=== PATIENT | male | born 1950 | race Hispanic/Latino ===

== ENCOUNTER 2018-12-11 04:15 | Inpatient (IN) | payer OTHER ==
[2018-12-11] MEDS ORDERED: Morphine 4 MG/ML VIAL ONE (05:11)
[2018-12-11] MEDS ORDERED: Ondansetron PF 4 MG/2 ML Vial ONE (05:11)
--- NOTE | 2018-12-11 05:19 | PDOC.FPRHP ---
- History of Present Illness Chief Complaint: coffee ground emesis History of Present Illness: The patient is a 68YO gentleman with a PMH significant for DMII, HTN, HLD, and schizophrenia who was transferred from an outside facility after presenting there from shelter due to multiple episodes of coffee ground emesis that started around 11AM the day prior to presentation. The patient is aphasic and bedbound at baseline so the history was obtained via chart review and the ER physician. In addition, one beach lifeguard reported that this is not the first time the patient has had coffee ground emesis and stated that the last time it happened he aspirated and had to be hospitalized. The patients Hgb at the outside facility was 10.4 and he had a positive gastric occult blood test. An abd/pelvic CT did not show any free fluid or obstruction but was significant for a late acute vs. early subacute left femoral neck fracture. The patient was given 80mg of IV protonix before being transferred to [facility] for further evaluation. ED Course: 4mg zofran & 4mg morphine - History PMHx: HTN, HLD, schizophrenia, DMII, COPD PSHx: PEG tube and trach placement FHx: unable to obtain 2/2 aphasia Social: unable to obtain 2/2 aphasia - Review of Systems ROS unobtainable: other (limited 2/2 patient's aphasia) Eyes: denies: eye pain Respiratory: reports: shortness of breath Cardiovascular: denies: chest pain Gastrointestinal: reports: vomiting, GI bleeding. denies: abdominal pain Musculoskeletal: denies: pain - Vital signs BP: 135/81 HR: 92 RR: 27 Tmax: 98.7F Pox: 95% on RA - Physical Exam Constitutional: NAD, other (frail appearing & unable to assess orientation 2/2 aphasia) HEENT: normocephalic and atraumatic, grossly normal vision, grossly normal hearing, MMM, other (poor dentition) Neck: supple, FROM Heart: RRR, normal S1/S2, no murmurs/rubs/gallops, pulses present, no edema Lungs: CTAB, good air movement, no wheezing, no retractions Abdomen: soft, bowel sounds present, other (reported TTP in epigastrium; PEG tube in place) Musculoskeletal: normal structure, other Neurological: other (aphasic w/ inability to move LEs) Skin: no rash/lesions, good turgor, no jaundice Heme/Lymphatic: no purpura, no petechia, other (brown staining on collar of hospital gown with brown debris in trach tube) Psychiatric: other (unable to assess 2/2 aphasia) FMR H&P: Results - Labs Additional comment: Sodium - 137 Potassium 3.7 Cl: 101 CO2: 24 Glucose: 261 Ca: 8.3 BUN: 20 Alk phos: 152 ALT: 20 AST: 29 Lactic Acid 2.2 Gastric occult blood: positive H/H : 10.4/31.8 Plt: 242 PT: 14.1/INR: 1.3 Trop: < 0.01 CKMB: 1.41 FMR H&P: A/P - Problem List (1) Upper GI bleed Current Visit: Yes Status: Acute Code(s): K92.2 - GASTROINTESTINAL HEMORRHAGE, UNSPECIFIED (2) HTN (hypertension) Current Visit: Yes Status: Acute Code(s): I10 - ESSENTIAL (PRIMARY) HYPERTENSION (3) HLD (hyperlipidemia) Current Visit: Yes Status: Acute Code(s): E78.5 - HYPERLIPIDEMIA, UNSPECIFIED (4) Schizophrenia Current Visit: Yes Status: Acute Code(s): F20.9 - SCHIZOPHRENIA, UNSPECIFIED (5) DMII (diabetes mellitus, type 2) Current Visit: Yes Status: Acute (6) COPD (chronic obstructive pulmonary disease) Current Visit: Yes Status: Acute (7) Lactate blood increase Current Visit: Yes Status: Acute Code(s): R79.89 - OTHER SPECIFIED ABNORMAL FINDINGS OF BLOOD CHEMISTRY - Plan Upper GI bleed. - Gastric occult blood + at outside ED. Hgb 10.4. HD stable. - PT received protonix 80 mg IV prior to transfer. Will continue IV protonix 40mg BID. - GI consult in AM. Subacute femoral neck fracture - Patient denies any hip pain. - Will consider orthopedic consultation due to questionable acuity. Elevated lactate - Lactate mildly elevated at 2.2 at outside ED. Patient afebrile w/ a NL WBC count & HD stable so infection unlikely etiology. Could possibly be 2/2 thiamine deficiency or excessive muscle activity from tachypnea 2/2 chronic respiratory failure. - Will consider trending. Chronic hypoxic respiratory failure - Trach tube in place - Will continue routine trach care with humidified O2 & suctioning prn. Schizophrenia - continue home meds COPD - continue home meds Hypertension - resume home meds Hyperlipidemia - resume home meds DMII - Resume home meds. ACHS accuchecks & mild SSI. FMR H&P: Upper Level - Pertinent history Cesar Mack is a 68 year old male who was transferred from [facility] due to acute upper GI bleed Pt was initially to be admitted to GI at other hospital due to one day history of coffee ground emesis, but with new finding of subacute left femoral neck fx, [facility] recommended txfer to [facility]. Of note, he is reportedly bedbound and also has a chronic trach and peg for unclear reasons. - Pertinent findings Exam: General: pt alert and responsive; able to nod yes/no to questions; coffee ground material around gown collar. HEENT: trach in place; Heart: Regular rate and rhythm, no murmurs, rubs, gallops. Lungs: Clear to auscultation bilaterally, no wheezes, rhonchi, rales Abdomen: soft, non-tender. Sodium - 137 Potassium 3.7 Cl: 101 CO2: 24 Glucose: 261 Ca: 8.3 BUN: 20 Alk phos: 152 ALT: 20 AST: 29 Lactic Acid 2.2 Gastric occult blood: positive H/H : 10.4/31.8 Plt: 242 PT: 14.1/INR: 1.3 Trop: < 0.01 CKMB: 1.41 CT Abdomen pelvis: late acute or early subacute appearing fracture of the left femoral neck with varus angulation foreshortening, large left hipjoint effusion.Mildly obstructive left-sided renal calculi. - Plan Date/Time: 12/11/18 9553 ICalista, have evaluated this patient and agree with findings/plan as outlined by international first officer resident. Pertinent changes/additions are listed here. Upper GI bleed. - will admit to medical inpatient. - Nothing per PEG - GI consult in AM. - PT received protonix 80 mg IV prior to transfer. Subacute femoral neck fracture - may consider orthopedic consultation due to questionable acuity. Chronic hypoxic respiratory failure. - with trach; - trach care, with humidified O2; suctioning prn. Schizophrenia - continue home meds COPD - continue home meds Hypertension - resume home meds Hyperlipidemia - resume home meds Addendum - Attending - Attending Attestation Date/Time: 12/11/18 7722 I personally evaluated the patient and discussed the management with Dr. Elliott/ Casimiro. I agree with the History, Examination, Assessment and Plan documented above with any addition or exceptions noted below. Patient with history of mental disorders, incarcerated status, s/p trach/PEG, and bedbound status here with what appears to be coffee ground emesis. He was seen at [facility] and transferred here for higher care. Outside records show occult blood positive, and he has some bloody like emesis material on his gown. He is otherwise nonverbal and unable to answer questioning. He will be admitted for suspected upper GI bleed. NPO, IVF, Protonix BID, and consult GI. Trend H/H. He was also noted to have hip fracture at outside hospital, unknown etiology. Will consult Ortho, though since patient is bedbound do not know if they will actually plan to do anything other than bracing and pain control.
[2018-12-11] MEDS ORDERED: HumaLOG 300 UNITS/3 ML VIAL SC PRN ×2 (07:03)
[2018-12-11] MEDS ORDERED: Dextrose 5% in Water 1,000 ML IV PRN (07:03)
[2018-12-11] MEDS ORDERED: Dextrose 50% Abboject 50 ML SYRINGE SLOW IVP PRN (07:03)
[2018-12-11] MEDS ORDERED: Sodium Chloride 0.9% (PF) 10 ML VIAL FS PRN (07:25)
[2018-12-11 07:31] VITALS: BMI 21.2
[2018-12-11 07:53] LABS: Anion Gap 10 mmol/L (10-20); BUN (Urea Nitrogen) 23 mg/dL (8.4-25.7); Calc. Creatinine Clearance 85 mL/min (70-130); Calcium 8.8 mg/dL (7.8-10.44); Carbon Dioxide 24 mmol/L (23-31); Chloride 107 mmol/L (98-107); Estimated GFR-MDRD Greater than 90; Glucose 123 mg/dL (80-115); Potassium 4.1 mmol/L (3.5-5.1); Sodium 137 mmol/L (136-145)
[2018-12-11] MEDS ORDERED: Prevnar 13-Val Conj/PF 0.5 ML SYRINGE IM ONE (08:15)
[2018-12-11 08:17] LABS: Hemoglobin 10.4 g/dL (14.0-18.0); Mean Corpuscular HGB CONC 31.9 g/dL (32.0-36.0); Mean Corpuscular Hemoglobin 28.2 pg (27.0-31.0); Mean Corpuscular Volume 88.4 fL (78.0-98.0); Mean Platelet Volume 7.8 fL (7.4-10.4); Platelet Count 228 thou/uL (130-400); RBC Distribution Width 16.6 % (11.5-14.5)
[2018-12-11 08:47] LABS: Band 1 % (5-11); Burr Cells MODERATE= 6-15 cells (100X) (0-1/hpf); Hypochromia SLIGHT = 6-15 cells (100X) (0-5/hpf); Lymphocytes 6 % (21-51); MDiff Complete? YES; Microcytosis MODERATE=15-30 cells (100X) (0-5/hpf); Monocytes 12 % (0-10); Neutrophil 78 % (42-75); Platelet Morphology Comment Appears Adequate; Reactive Lymphocytes 2 % (0-10); Schistocytes MODERATE= 6-15 cells (100X) (0-1/hpf); White Blood Cell (WBC) Count 16.7 thou/uL (4.8-10.8)
[2018-12-11] MEDS: Lactated Ringer's 1,000 ML IV SCH ×2 (09:16→19:25)
[2018-12-11] MEDS: Pantoprazole 40 MG VIAL IVP SCH ×2 (09:16→20:45)
[2018-12-11] MEDS ORDERED: Morphine 4 MG/ML VIAL SLOW IVP PRN (09:26)
[2018-12-11] MEDS ORDERED: Fleet Enema 133 ML BOT PR SCH (09:30)
--- NOTE | 2018-12-11 10:04 | RAD ---
LEFT HIP 4 VIEWS: DATE: 12/11/2018. COMPARISON: None. HISTORY: Known fracture of proximal left femur seen on prior CT examination. FINDINGS: Contracted state of patient and positioning limitations detailed assessment. The rectum is expanded and filled with stool suggesting fecal impaction. Cross-table lateral view demonstrates a fracture a t the base of the femoral head on the left. The left hip does not appear dislocated. The distal fra cture fragment is displaced proximally and posteriorly. IMPRESSION: Fracture at the base of the left femoral head with displacement of the distal fracture fragment as de tailed above. This has a similar configuration when compared to a CT examination of the chest perfor med 07/19/2018. POS: [facility]
[2018-12-11 14:20] LABS: Hemoglobin 9.8 g/dL (14.0-18.0); Mean Corpuscular HGB CONC 30.9 g/dL (32.0-36.0); Mean Corpuscular Hemoglobin 27.7 pg (27.0-31.0); Mean Corpuscular Volume 89.4 fL (78.0-98.0); Mean Platelet Volume 7.5 fL (7.4-10.4); Platelet Count 254 thou/uL (130-400); RBC Distribution Width 16.8 % (11.5-14.5); Red Blood Cell (RBC) Count 3.53 mill/uL (4.70-6.10); White Blood Cell (WBC) Count 18.1 thou/uL (4.8-10.8)
--- NOTE | 2018-12-11 15:27 | CON ---
DATE OF CONSULTATION: 12/11/2018 HISTORY OF PRESENT ILLNESS: The patient is a 68-year-old gentleman who has type 2 diabetes, hypertension, schizophrenia. The patient has been bed bound for a long period of time. He is aphasic. He cannot provide any history. He was transferred here because of coffee-grounds emesis and x-rays that were obtained showed a displaced fracture of the femoral neck. I was consulted for evaluation of the femoral neck fracture that is reported by the guards that the patient rarely moves. He lays in a curled up position, he is unable to communicate. I did review the x-rays. The patient does have a displaced femoral neck fracture. The fracture does not appear to be acute to me, it could be several weeks or several months old. PLAN: The patient is aphasic and nonambulatory. I would not recommend any type of surgical intervention on the displaced femoral neck fracture. The only surgery that would be entertained would be a proximal femoral replacement. I do not feel that this would provide any improvement in the patient's quality of life and he is at significant risk for infection and other potential complications. Since the patient is strictly bed-bound, I do not feel that he would benefit from any surgery. No further followup is needed. Job ID: [id number]
[2018-12-11 20:15] LABS: Hemoglobin 9.4 g/dL (14.0-18.0); Mean Corpuscular HGB CONC 30.5 g/dL (32.0-36.0); Mean Corpuscular Hemoglobin 27.3 pg (27.0-31.0); Mean Corpuscular Volume 89.4 fL (78.0-98.0); Mean Platelet Volume 7.4 fL (7.4-10.4); Platelet Count 228 thou/uL (130-400); RBC Distribution Width 16.5 % (11.5-14.5); Red Blood Cell (RBC) Count 3.43 mill/uL (4.70-6.10); White Blood Cell (WBC) Count 24.6 thou/uL (4.8-10.8)
--- NOTE | 2018-12-11 21:58 | CON ---
DATE OF CONSULTATION: 12/11/2018 REASON FOR CONSULTATION: Hematemesis, CONSULTING PHYSICIAN: Emmy Cummings M.D. HISTORY OF PRESENT ILLNESS: The patient is a 68-year-old male with past medical history of diabetes, hypertension, hyperlipidemia, and schizophrenia with associated aphasia presenting with complaints of hematemesis. The patient is unable to contribute any verbal communication to the interview, but was able to answer affirmatively negatively via nodding of his head. Per chart review, the patient was transferred here from care home due to having multiple episodes of vomiting of coffee-grounds emesis that started at approximately 11:00 am on December 10, 2018. With the appearance of the hematemesis, he was ultimately transferred here to [facility] for further evaluation. Currently, the patient states that he does have increased abdominal pain as indicated by nodding of his head, but could not elaborate more on his abdominal pain. Otherwise further symptoms cannot be elucidated at this time. While he has been admitted to the [facility], he has not had any further episodes of hematemesis per nursing staff, nor has he had any melenic type stools. REVIEW OF SYSTEMS: A 10-category review of systems could not be obtained due to the patient's aphasic. PAST MEDICAL HISTORY: As per HPI. PAST SURGICAL HISTORY: PEG tube placement and tracheostomy placement. FAMILY HISTORY: Unknown. SOCIAL HISTORY: Unknown. OUTPATIENT MEDICATIONS: Reviewed. ALLERGIES: NO KNOWN DRUG ALLERGIES. PHYSICAL EXAMINATION: VITAL SIGNS: Temperature 98.5, pulse 96, blood pressure 134/76, respiratory rate 22, saturating 96% on room air. GENERAL: The patient was lying in bed, in no acute distress, unable to determine sensorium due to the patient's aphasia and erratic nodding of his head. Cachectic in appearance. HEENT: Normocephalic, atraumatic. NECK: Supple. No scleral icterus or JVD noted. CARDIOVASCULAR: Regular rate and rhythm with no discernible murmurs, gallops, or rubs. RESPIRATORY: Clear to auscultation bilaterally with no discernible wheezes or rales, although increased coarse breath sounds were heard in the upper lung tomas consistent with his tracheostomy. ABDOMEN: Normoactive bowel sounds. Soft, nondistended. Tenderness to palpation in all abdominal quadrants. EXTREMITIES: No cyanosis, clubbing, or edema. LABORATORY DATA: CBC with a white blood cell count of 16.7, hemoglobin 10.4, hematocrit 32.7, platelets 228. Chemistry with a sodium of 137, potassium 4.1, chloride 107, CO2 of 24, BUN 23, creatinine 0.64, glucose 123. IMAGING DATA: No current GI imaging is available for review. ASSESSMENT AND PLAN: The patient is a 68-year-old male with past medical history of diabetes, hypertension, hyperlipidemia, and schizophrenia with aphasia presenting with hematemesis. Hematemesis. Per chart review, the patient had been previously seen for hematemesis in the past that resulted in aspiration and subsequently required hospitalization. However, it is unknown where this occurred and what interventions were done at that time. Now presenting with repeat episodes of hematemesis in the care home, prompting evaluation here. However, he has not had any further episodes of hematemesis nor melena during this admission. Upon evaluation of his H and H, he does have a downtrending H and H, which is concerning for a possible GI bleed, but he is also getting IV fluid administration at this time with possible hemodilution component added to this. However, his BUN to creatinine ratio is elevated with a greater than 20:1 ratio again raising concern for an upper GI bleed. Differential at this time could include esophagitis, gastritis, peptic ulcer disease, arteriovenous malformation, Dieulafoy lesion and/or GI neoplasm (much less likely). RECOMMENDATIONS: 1. We would continue to trend H and H and transfuse as necessary to maintain an H and H of 7/21. 2. Continue to monitor clinically for signs of active GI bleeding. 3. We would continue patient n.p.o. status for now in light of possible GI bleeding and possible PEG tube origin. 4. We will plan for EGD tomorrow morning for evaluation of the upper GI tract with possible bleeding source elucidated at that time. 5. We would continue PPI 40 mg b.i.d. 6. We will continue to follow. 7. Please call with any questions. Job ID: [id number]
[2018-12-12 00:30] LABS: Mean Corpuscular HGB CONC 31.3 g/dL (32.0-36.0); Mean Corpuscular Hemoglobin 28.1 pg (27.0-31.0); Mean Corpuscular Volume 89.8 fL (78.0-98.0); Mean Platelet Volume 7.2 fL (7.4-10.4); Platelet Count 198 thou/uL (130-400); RBC Distribution Width 16.7 % (11.5-14.5); Red Blood Cell (RBC) Count 3.19 mill/uL (4.70-6.10); White Blood Cell (WBC) Count 19.8 thou/uL (4.8-10.8)
[2018-12-12 05:57] LABS: Hemoglobin 8.7 g/dL (14.0-18.0); Mean Corpuscular HGB CONC 31.6 g/dL (32.0-36.0); Mean Corpuscular Hemoglobin 28.2 pg (27.0-31.0); Mean Corpuscular Volume 89.4 fL (78.0-98.0); Mean Platelet Volume 7.2 fL (7.4-10.4); Platelet Count 212 thou/uL (130-400); RBC Distribution Width 16.7 % (11.5-14.5); Red Blood Cell (RBC) Count 3.06 mill/uL (4.70-6.10); White Blood Cell (WBC) Count 17.7 thou/uL (4.8-10.8)
[2018-12-12] MEDS: Lactated Ringer's 1,000 ML IV SCH ×2 (06:03→21:25)
--- NOTE | 2018-12-12 06:21 | PDOC.FM ---
- Subjective Subjective: Patient aphasic. Nurse reports patient has been coughing, she cleaned his trach this AM. Two large bowel movements over night. - Objective Vital Signs & Weight: Vital Signs (12 hours) Temp Pulse Resp BP Pulse Ox 12/12/18 04:17 97.4 F L 99 18 130/70 95 12/11/18 20:05 98.7 F 102 H 18 101/60 92 L Weight Weight 54.4 kg Result Diagrams: 12/12/18 05:36 12/11/18 07:22 Phys Exam - Physical Examination Constitutional: NAD HEENT: moist MMs Tracheostomy in place Respiratory: no wheezing, clear to auscultation bilateral Coughing on exam Cardiovascular: RRR, no significant murmur Gastrointestinal: soft, non-tender, no distention, positive bowel sounds peg tube Musculoskeletal: no edema, pulses present aphasic, shakes head yes or no Deviation from normal: Flat affect, baseline for hime Skin: no rash, normal turgor Dx/Plan (1) Upper GI bleed Code(s): K92.2 - GASTROINTESTINAL HEMORRHAGE, UNSPECIFIED Status: Acute (2) COPD (chronic obstructive pulmonary disease) Status: Chronic (3) DMII (diabetes mellitus, type 2) Status: Chronic (4) HLD (hyperlipidemia) Code(s): E78.5 - HYPERLIPIDEMIA, UNSPECIFIED Status: Chronic (5) HTN (hypertension) Code(s): I10 - ESSENTIAL (PRIMARY) HYPERTENSION Status: Chronic (6) Lactate blood increase Code(s): R79.89 - OTHER SPECIFIED ABNORMAL FINDINGS OF BLOOD CHEMISTRY Status : Chronic (7) Schizophrenia Code(s): F20.9 - SCHIZOPHRENIA, UNSPECIFIED Status: Chronic - Plan Plan: 68 [facility] [place] [facility] patient aphasic/nonverbal (can shake yes or no) presenting with UGI bleed, of note, he is reportedly bedbound and also has a chronic trach and peg for unclear reasons. Upper GI bleed. - Gastric occult blood + at outside ED. Hgb 10.4 on admission, downtrended to 8.7. Dilution vs bleed. HD stable. - Continue IV protonix 40mg BID. Continue MIVF. NPO. - No further episodes of bloody vomitus since admission - Continue to monitor hemoglobin - GI consulted, Dr. Velazquez, appreciate recs - EGD this AM Leukocytosis, concern for sepsis -R >22, P >90 - Start septic workup - B Cx, CXR, UA Subacute femoral neck fracture - Patient reports hip pain yesterday AM - Morphine 1xdose for pain - Ortho consulted, Dr. Huitron, appreciate recommendations. No surgery recommended at this time. Elevated lactate - Lactate mildly elevated at 2.2 at outside ED. Chronic hypoxic respiratory failure - Trach tube in place - Will continue routine trach care with humidified O2 & suctioning prn. Schizophrenia - continue home meds COPD - continue home meds Hypertension - resume home meds Hyperlipidemia - resume home meds DMII - Resume home meds. ACHS accuchecks & mild SSI. Constipation, resolved -Patient had 2 bowel movements overnight DVT ppx: GI ppx: protonix PCP: unknown, Detention pt Code status: Full Addendum - Attending - Attending Attestation Date/Time: 12/12/18 9271 I personally evaluated the patient and discussed the management with Dr. Lafleur. I agree with the History, Examination, Assessment and Plan documented above with any addition or exceptions noted below. Patient here with suspicion of upper GI bleed and mild downtrending of his H/H. He is scheduled for EGD this morning with GI. Continue Protonix BID and await further recs after procedure.
[2018-12-12] MEDS ORDERED: Scopolamine 1.5 mg/72 hour Patch TOP SCH (09:00)
[2018-12-12] MEDS: Pantoprazole 40 MG VIAL IVP SCH (09:16)
[2018-12-12] MEDS: Atorvastatin Calcium 40 MG TAB PO SCH (09:17)
[2018-12-12 09:50] LABS: Anion Gap 10 mmol/L (10-20); BUN (Urea Nitrogen) 16 mg/dL (8.4-25.7); Calc. Creatinine Clearance 97 mL/min (70-130); Calcium 8.2 mg/dL (7.8-10.44); Carbon Dioxide 23 mmol/L (23-31); Chloride 113 mmol/L (98-107); Estimated GFR-MDRD Greater than 90; Glucose 96 mg/dL (80-115); Potassium 3.5 mmol/L (3.5-5.1); Sodium 142 mmol/L (136-145)
[2018-12-12 09:54] LABS: Bilirubin Small (Negative); Blood, Urine Negative (Negative); Clarity CLEAR (Clear); Glucose, Urine (Dipstick) Negative (Negative); Leukocyte Negative (Negative); Nitrite Negative (Negative); Protein, Urine (Dipstick) Negative (Neg-Trace); Specific Gravity, Urine 1.023 (1.002-1.036); pH, Urine 6.5 (5.0-9.0)
[2018-12-12 10:00] LABS: Bacteria/HPF None Seen HPF (None Seen); Hyaline Casts/LPF 0-3 HYALINE CAST LPF (0-3 Hyaline); Pathc Cast-AUWi Flag 0.43 (0-2.49); RBC/HPF 0-3 HPF (0-3); Squamous Epithelial 0-3 HPF (0-3); WBC/HPF 0-3 HPF (0-3)
[2018-12-12 10:24] LABS: Renal Epithelial 0-3 HPF (0-3); Transitional Epithelial 0-3 HPF (0-3)
[2018-12-12 10:25] LABS: Urine Culture Reflex No No
--- NOTE | 2018-12-12 11:31 | OP ---
DATE OF PROCEDURE: 12/12/2018 PROCEDURE PERFORMED: Esophagogastroduodenoscopy (diagnostic). INDICATION FOR PROCEDURE: Hematemesis. DESCRIPTION OF PROCEDURE: After the risks and benefits of the procedure were explained to the patient's surrogate (clergy) including risk of bleeding, infection, perforation, reactions to anesthesia, aspiration, and/or pain, informed consent was obtained. The patient was then taken to the endoscopy suite, where deep sedation was administered via propofol and anesthesia support. Once adequate sedation was achieved, the patient was placed in the supine position due to inability to bear weight on his left hip, secondary to fracture. Using the standard gastroscope, it was introduced into the mouth with intubation of the esophagus, stomach, and the proximal small intestine with the findings listed below. The patient tolerated the procedure well with no immediate perioperative complications. Upon conclusion of the procedure, all equipments were then removed from the patient, and the patient was taken to PACU in satisfactory condition. FINDINGS: Esophagus: Normal-appearing mucosa was seen in the proximal esophagus; however, severe circumferential ulceration, scar tissue, and friability was seen in the mid and distal esophagus consistent with severe reflux-mediated erosive esophagitis (LA grade D). With the passage of the gastroscope, it did exhibit minimal oozing of blood, but did not display any overt bleeding. Otherwise, there was no evidence of gross/mass lesions within the esophagus. The diaphragmatic pinch was seen at 38 cm while the GE junction was well seen at 35 cm, indicating a 3-cm hiatal hernia. Stomach: A 2- to 3-cm patch of increased mucosal erythema, and a mild mosaic type pattern was seen in the gastric fundus along the greater curvature, but did not have any other associated pathology with otherwise normal-appearing mucosa was seen in the gastric cardia, fundus, antrum, and incisura. There was no evidence of erosions, ulcerations, mass, lesions, or active/recent bleeding. Duodenum: Normal-appearing mucosa was seen in both the duodenal bulb and second portion of the duodenum. There was no evidence of erosions, ulcerations, mass, lesions, or active/recent bleeding. IMPRESSION: 1. LA grade D erosive esophagitis, most likely mediated via acid reflux and hiatal hernia (most likely reason for the patient's recent hematemesis). 2. 3-cm hiatal hernia. 3. 2-to 3-cm erythematous patch in the gastric fundus consistent with nonspecific gastropathy. RECOMMENDATIONS: 1. We would continue the patient on PPI 40 mg b.i.d. for the next 8 to 12 weeks given severe erosive esophagitis. 2. Maintain strict anti-reflux precautions in this patient including elevating the head of the bed when the supine position, especially for at least 2 hours after meals. 3. Continue to trend H and H and transfuse as necessary to maintain an H and H of 7/21. 4. No further endoscopic therapies indicated at this time. We will sign off at this time. The patient will need to follow up in a GI clinic in the next 4 to 6 weeks for re-evaluation of his acid reflux. I would continue the b.i.d. dosing of the PPI until seen. Job ID: [id number]
[2018-12-12 12:34] LABS: Mean Corpuscular HGB CONC 31.9 g/dL (32.0-36.0); Mean Corpuscular Hemoglobin 28.9 pg (27.0-31.0); Mean Corpuscular Volume 90.7 fL (78.0-98.0); Mean Platelet Volume 7.6 fL (7.4-10.4); Platelet Count 225 thou/uL (130-400); RBC Distribution Width 16.9 % (11.5-14.5); Red Blood Cell (RBC) Count 3.12 mill/uL (4.70-6.10); White Blood Cell (WBC) Count 19.9 thou/uL (4.8-10.8)
[2018-12-12] MEDS ORDERED: PROPOFOL 200 MG/20 ML VIAL ONE (13:20)
--- NOTE | 2018-12-12 17:29 | RAD ---
CHEST ONE VIEW: History: Chest pain Comparison: None. FINDINGS: Likely interposition of bowel between the right hemidiaphragm and the right lobe of the liver, most l ikely free air. There is consolidation at the left lung base. Tracheostomy tube is in good position. Old right distal clavicular injury with widening acromioclavicular joint ossification along the coracoclavicular liga ments. IMPRESSION: Left basilar airspace opacity concerning for infection or aspiration. POS: [facility]
[2018-12-12] MEDS: diphenhydrAMINE 25 MG CAP PO SCH (21:28)
[2018-12-12] MEDS: Amoxicillin/Potassium Clav 875 MG TAB PO SCH (21:28)
--- NOTE | 2018-12-13 06:09 | PDOC.FM ---
- Subjective Subjective: Difficult to assess pt this morning 2/2 trach and non verbal. Guards report no concerns overnight. - Objective MAR Reviewed: Yes Vital Signs & Weight: Vital Signs (12 hours) Temp Pulse Resp BP Pulse Ox 12/13/18 01:06 98.6 F 65 18 100/52 L 97 12/12/18 21:24 98.5 F 66 16 101/58 L 96 12/12/18 20:00 96 Weight Weight 54.4 kg I&O: 12/11/18 12/12/18 12/13/18 06:59 06:59 06:59 Intake Total 877.5 1080 Output Total 400 Balance 877.5 680 Result Diagrams: 12/13/18 07:17 12/13/18 07:17 Phys Exam - Physical Examination Constitutional: NAD HEENT: PERRLA, moist MMs Neck: no nodes, no JVD, supple Respiratory: no wheezing, clear to auscultation bilateral Non-labored breathing Cardiovascular: RRR, no significant murmur, no rub Gastrointestinal: soft, no distention, positive bowel sounds Musculoskeletal: no edema, pulses present Unable to assess, does not follow commands Skin: cap refill <2 seconds Dx/Plan (1) Upper GI bleed Code(s): K92.2 - GASTROINTESTINAL HEMORRHAGE, UNSPECIFIED Status: Acute (2) COPD (chronic obstructive pulmonary disease) Status: Chronic (3) DMII (diabetes mellitus, type 2) Status: Chronic (4) HLD (hyperlipidemia) Code(s): E78.5 - HYPERLIPIDEMIA, UNSPECIFIED Status: Chronic (5) HTN (hypertension) Code(s): I10 - ESSENTIAL (PRIMARY) HYPERTENSION Status: Chronic (6) Lactate blood increase Code(s): R79.89 - OTHER SPECIFIED ABNORMAL FINDINGS OF BLOOD CHEMISTRY Status : Chronic (7) Schizophrenia Code(s): F20.9 - SCHIZOPHRENIA, UNSPECIFIED Status: Chronic - Plan Plan: This is a 68 yo male with a pmh of COPD, DM2, HTN, schizophrenia Upper GI bleed -Stool occult blood positive, initially had coffee ground emesis -GI consulted -EGD yesterday shows LA grade D esophagitis and a 3cm hiatal hernia -Continue PPI 40mg BID for 8-12 weeks -Avoid laying flat for 2 hours following meals -Elevated head of bed -Hgb appears stable Subacute femoral neck fracture -Orthopedic surgery consulted and feel risks of repair outweigh benefits as pt is bed bound already -Morphine for pain control, will assess for need and switch to PO medication Chronic hypoxic respiratory failure -Trach tube in place -Continue routine trach care Leukocytosis, resloved -Pending blood cultures -CXR shows left basilar airspace opacity concerning for infection or aspiration -Procal indeterminate at 0.35 -Currently on augmentin Hypokalemia -Will replace Schizophrenia -Continue home meds COPD -Continue home meds HTN -Continue home meds HLD -Continue home meds DM2 -Continue home meds, ACHS accuchecks, mild SSI
[2018-12-13 07:51] LABS: #Lymphocytes 1.4 thou/uL (1.20-3.40); #Monocytes 0.6 thou/uL (0.11-0.59); #Neutrophils 8.6 thou/uL (1.40-6.50); %Basophils 0.3 % (0.0-1.0); %Eosinophils 0.3 % (0.0-10.0); %Lymphocytes 13.4 % (21.0-51.0); %Monocytes 5.9 % (0.0-10.0); %Neutrophils 80.1 % (42.0-75.0); Hemoglobin 8.4 g/dL (14.0-18.0); Mean Corpuscular HGB CONC 31.5 g/dL (32.0-36.0); Mean Corpuscular Hemoglobin 28.6 pg (27.0-31.0); Mean Corpuscular Volume 90.6 fL (78.0-98.0); Mean Platelet Volume 7.7 fL (7.4-10.4); Platelet Count 182 thou/uL (130-400); RBC Distribution Width 16.7 % (11.5-14.5); Red Blood Cell (RBC) Count 2.93 mill/uL (4.70-6.10); White Blood Cell (WBC) Count 10.7 thou/uL (4.8-10.8)
[2018-12-13] MEDS: Lactated Ringer's 1,000 ML IV SCH ×3 (08:14→21:23)
[2018-12-13 08:18] LABS: Anion Gap 8 mmol/L (10-20); BUN (Urea Nitrogen) 11 mg/dL (8.4-25.7); Calc. Creatinine Clearance 107 mL/min (70-130); Carbon Dioxide 25 mmol/L (23-31); Chloride 110 mmol/L (98-107); Estimated GFR-MDRD Greater than 90; Glucose 85 mg/dL (80-115); Potassium 3.4 mmol/L (3.5-5.1); Sodium 140 mmol/L (136-145)
[2018-12-13] MEDS: Amoxicillin/Potassium Clav 875 MG TAB PO SCH ×2 (09:08→21:23)
[2018-12-13] MEDS: Pantoprazole 40 MG GRANULES PACKET PO SCH ×2 (09:08→21:23)
[2018-12-13] MEDS: Atorvastatin Calcium 40 MG TAB PO SCH (09:08)
--- NOTE | 2018-12-13 11:10 | PRG ---
DATE OF SERVICE: 12/13/2018 REASON FOR CONSULTATION: Hematemesis. SUBJECTIVE: The patient underwent EGD yesterday with the findings of severe LA grade D erosive esophagitis in the distal and mid esophagus with increased friability and bleeding to the passage of the gastroscope. This was also seen in conjunction with hiatal hernia, which has been going on and predisposed the patient toward acid reflux and acid reflux-type symptoms. Today upon evaluating the patient, he states that his abdominal pain/chest pain has gotten better with maintaining more of an upright posture while in bed, giving his bedbound status. The patient nodded to the negative about any further episodes of nausea, vomiting, fevers, chills, or GI bleeding. OBJECTIVE: VITAL SIGNS: Temperature 98.5, pulse 82, blood pressure 106/60, respiratory rate 18, saturating 96% on room air. GENERAL: The patient was lying in bed, in no acute distress, was able to nod to the affirmative and negative with simple questioning. CARDIOVASCULAR: Regular rate and rhythm. RESPIRATORY: Coarse breath sound heard in the upper lung tomas consistent with tracheostomy. ABDOMEN: Normoactive bowel sounds. Soft, nondistended, mild tenderness to palpation in the midepigastric/periumbilical region. EXTREMITIES: No cyanosis, clubbing, or edema. LABORATORY DATA: CBC with a white blood cell count of 10.7, hemoglobin 8.4, hematocrit 26.5, platelets 182. Chemistry with a sodium of 140, potassium 3.4, chloride 110, CO2 of 25, BUN 11, creatinine 0.51, glucose 85. IMAGING DATA: EGD obtained on December 12, 2018, showed LA grade D erosive esophagitis in the mid to distal esophagus with increased friability and bleeding with passage of the standard gastroscope as well as a 3 cm hiatal hernia was also seen along with mild patches of nonspecific gastropathy in the stomach that were nonbleeding upon visualization. ASSESSMENT AND PLAN: The patient is a 68-year-old male with past medical history of diabetes, hypertension, hyperlipidemia, and schizophrenia with aphasia presenting with hematemesis. Hematemesis. Per chart review, the patient had previously been seen in the hospital with hematemesis that had subsequently resulted in aspiration. However, upon this admission, he did not exhibit any evidence of aspiration, but did have repeated episodes of hematemesis while in [facility]; however, with no further episodes of hematemesis while inpatient. He ultimately underwent esophagogastroduodenoscopy on December 12, 2018, which showed severe erosive esophagitis, likely acid reflux mediated, creating increased friability and bleeding of the mid and distal esophagus. At this time, this is the most likely reason for his recent episodes of minimal hematemesis and no further episodes of hematemesis while here. His H and H are downtrending a little bit, but remains relatively stable over the last 24 to 48 hours. RECOMMENDATIONS: 1. Would continue to trend H and H and transfuse as necessary to maintain an H and H of 7 and 21. 2. Continue to monitor clinically for signs of active GI bleeding. 3. The patient will need to be on PPI 40 mg b.i.d. for at least the next 8 to 12 weeks for to treat this severe erosive esophagitis. 4. Would recommend strict anti-reflux precautions including avoiding meals later in the evening, maintaining an upright posture at all times while in bed and avoiding trigger foods. We will sign off at this time. Please call with any additional questions. Job ID: [id number]
[2018-12-13] MEDS: Potassium Chloride 20 MEQ TAB PO SCH (14:39)
[2018-12-13] MEDS: diphenhydrAMINE 25 MG CAP PO SCH (21:23)
[2018-12-14] MEDS: Lactated Ringer's 1,000 ML IV SCH (03:44)
[2018-12-14 07:04] LABS: #Eosinphils 0.1 thou/uL (0.0-0.7); #Lymphocytes 1.5 thou/uL (1.20-3.40); #Monocytes 0.8 thou/uL (0.11-0.59); #Neutrophils 9.8 thou/uL (1.40-6.50); %Basophils 0.3 % (0.0-1.0); %Eosinophils 0.8 % (0.0-10.0); %Lymphocytes 12.4 % (21.0-51.0); %Monocytes 6.2 % (0.0-10.0); %Neutrophils 80.3 % (42.0-75.0); Hemoglobin 10.1 g/dL (14.0-18.0); Mean Corpuscular HGB CONC 31.5 g/dL (32.0-36.0); Mean Corpuscular Hemoglobin 28.3 pg (27.0-31.0); Mean Corpuscular Volume 89.7 fL (78.0-98.0); Mean Platelet Volume 7.6 fL (7.4-10.4); Platelet Count 217 thou/uL (130-400); RBC Distribution Width 17.3 % (11.5-14.5); Red Blood Cell (RBC) Count 3.56 mill/uL (4.70-6.10); White Blood Cell (WBC) Count 12.2 thou/uL (4.8-10.8)
[2018-12-14 07:07] LABS: Anion Gap 8 mmol/L (10-20); BUN (Urea Nitrogen) 8 mg/dL (8.4-25.7); Calc. Creatinine Clearance 97 mL/min (70-130); Calcium 8.5 mg/dL (7.8-10.44); Carbon Dioxide 26 mmol/L (23-31); Chloride 109 mmol/L (98-107); Estimated GFR-MDRD Greater than 90; Glucose 113 mg/dL (80-115); Potassium 3.6 mmol/L (3.5-5.1); Sodium 139 mmol/L (136-145)
--- NOTE | 2018-12-14 08:37 | PDOC.FM ---
- Subjective Subjective: Pt did well overnight per nursing and guard. ROS was difficult to obtain 2/ mentation. - Objective MAR Reviewed: Yes Vital Signs & Weight: Vital Signs (12 hours) Temp Pulse Resp BP Pulse Ox 12/14/18 08:27 97.6 F 76 16 106/65 94 L 12/14/18 04:31 97.8 F 66 20 129/70 95 12/14/18 00:32 97.8 F 69 20 126/74 99 Weight Admit Weight 54.399 kg Weight 54.399 kg I&O: 12/13/18 12/14/18 12/15/18 06:59 06:59 06:59 Intake Total 1515 4528 Output Total 401 Balance 1114 4528 Result Diagrams: 12/14/18 06:37 12/14/18 06:37 Phys Exam - Physical Examination Constitutional: NAD HEENT: PERRLA, moist MMs Neck: no JVD, full ROM Respiratory: no wheezing, no rales, clear to auscultation bilateral Cardiovascular: RRR, no significant murmur, no rub Gastrointestinal: soft, no distention, positive bowel sounds Musculoskeletal: no edema, pulses present Deviation from normal: Pt is minimally responsive, follows commands Pt shakes his head yes to all questions Skin: cap refill <2 seconds Dx/Plan (1) Upper GI bleed Code(s): K92.2 - GASTROINTESTINAL HEMORRHAGE, UNSPECIFIED Status: Acute (2) COPD (chronic obstructive pulmonary disease) Status: Chronic (3) DMII (diabetes mellitus, type 2) Status: Chronic (4) HLD (hyperlipidemia) Code(s): E78.5 - HYPERLIPIDEMIA, UNSPECIFIED Status: Chronic (5) HTN (hypertension) Code(s): I10 - ESSENTIAL (PRIMARY) HYPERTENSION Status: Chronic (6) Lactate blood increase Code(s): R79.89 - OTHER SPECIFIED ABNORMAL FINDINGS OF BLOOD CHEMISTRY Status : Chronic (7) Schizophrenia Code(s): F20.9 - SCHIZOPHRENIA, UNSPECIFIED Status: Chronic - Plan Plan: This is a 68 yo male with a pmh of COPD, DM2, HTN, schizophrenia Upper GI bleed -Stool occult blood positive, initially had coffee ground emesis -GI consulted -EGD 12/12/18 shows LA grade D esophagitis and a 3cm hiatal hernia -Continue PPI 40mg BID for 8-12 weeks -Avoid laying flat for 2 hours following meals -Elevated head of bed -Hgb appears stable Subacute femoral neck fracture -Orthopedic surgery consulted and feel risks of repair outweigh benefits as pt is bed bound already -Morphine for pain control, will assess for need and switch to PO medication Chronic hypoxic respiratory failure -Trach tube in place -Continue routine trach care Leukocytosis, resloved -Pending blood cultures -CXR shows left basilar airspace opacity concerning for infection or aspiration -Procal indeterminate at 0.35 -Currently on augmentin Hypokalemia -Will replace Schizophrenia -Continue home meds COPD -Continue home meds HTN -Continue home meds HLD -Continue home meds DM2 -Continue home meds, ACHS accuchecks, mild SSI
--- NOTE | 2018-12-14 08:50 | PRG ---
DATE OF SERVICE: 12/13/2018 ADDENDUM: Addendum to the note of Dr. Gumaro Jaimes. Mr. Mack is an unfortunate 68-year-old incarcerated male. He was transferred from an outside facility in group home due to multiple episodes of coffee-grounds emesis. He was admitted and worked up and found to have a significant erosive esophagitis. We are currently administering IV PPIs and the patient seems to be very gradually improving. His CBC on admission showed a white count of 16,700 with a hemoglobin 10.4 and hematocrit of 32.7. Currently, his white count has dropped to 10,700 and his hemoglobin is 8.4 with hematocrit 26.5. We will continue to monitor and administer medications, checking his H and Hs periodically. He; however, has not shown any further evidence of GI bleeding. Job ID: [id number]
[2018-12-14] MEDS: Pantoprazole 40 MG GRANULES PACKET PO SCH (09:32)
[2018-12-14] MEDS: Amoxicillin/Potassium Clav 875 MG TAB PO SCH (09:32)
[2018-12-14] MEDS: Potassium Chloride 20 MEQ TAB PO SCH (09:33)
[2018-12-14] MEDS: Atorvastatin Calcium 40 MG TAB PO SCH (09:33)
[2018-12-14 11:26] VITALS: BP 107/64; TEMP 98.4
--- NOTE | 2018-12-15 05:51 | DIS ---
DATE OF ADMISSION: 12/11/2018 DATE OF DISCHARGE: 12/14/2018 ADMITTING ATTENDING: Dr. Marvin Waite. DISCHARGING ATTENDING: Dr. Yahir Mclain. RESIDENT: Gumaro Jaimes DO. CONSULTS: Ortho, Dr. Yasmany Huitron; GI doctor, Dr. Mateo Velazquez. PROCEDURES: 1. EGD showing LA grade D erosive esophagitis, most likely mediated via acid reflux or hiatal hernia, 3 cm hiatal hernia, erythematous patch in the gastric fundus consistent with nonspecific gastropathy. 2. Hip x-ray 4 views. Fracture at the base of the left humeral head with displacement of the distal fracture fragment. 3. Chest x-ray showing left basilar airspace opacities concerning for infection or aspiration. PRIMARY DIAGNOSIS: Acute upper gastrointestinal bleed, subacute femoral neck fracture. SECONDARY DIAGNOSES: 1. Chronic hypoxic respiratory failure. 2. Schizophrenia. 3. Chronic obstructive pulmonary disease. 4. Hypertension. 5. Hyperlipidemia. 6. Type 2 diabetes. DISCHARGE MEDICATIONS: 1. Augmentin 875 mg p.o. b.i.d. for six days. 2. Albuterol neb q.6 hours p.r.n. SOB/wheezing. 3. Atorvastatin 40 mg p.o. daily. 4. Benadryl 25 mg p.o. at nighttime. 5. Haloperidol decanoate 100 mg IM q.28 days. 6. Insulin NPH 8 units SC daily. 7. NovoLog R as directed p.r.n. hyperglycemia. 8. Protonix 40 mg p.o. b.i.d. 9. Scopolamine patch 1.5 mg transdermal q.3 days. DISCONTINUED MEDICATIONS: None. BRIEF HISTORY/HOSPITAL COURSE: This 68-year-old gentleman with past medical history of type 2 diabetes, hypertension, hyperlipidemia, schizophrenia, was transferred from an outside facility after presenting there from [facility] due to multiple episodes of coffee-grounds emesis. Patient was admitted to the hospital, underwent EGD and was found to have findings as above. Patient was placed on Protonix. He will continue outpatient per GI recommendation. Patient was found to have a subacute fracture of his hip as detailed above. Ortho stated this is a nonoperable procedure due to patient being bedridden, and continued pain management for that. Patient did not receive any blood products during his stay. Hemoglobin remained stable, 10.1 at the time of discharge. Patient showed no signs of symptomatic anemia. DISPOSITION: Stable. DISCHARGE INSTRUCTIONS: 1. Location: Home. 2. Diet: Low fat, no spicy foods, heart healthy, diabetic carb consistent. ACTIVITY: As tolerated. FOLLOWUP: Follow up with the [facility] PCP in 1 to 2 weeks. Job ID: [id number]
== END 2018-12-14 14:30 | DRG 380 ==
LOC: ERS 04:15 → SURG B 05:17
PROVIDERS: ADMIT Student in an Organized Health Care Education/Training Program; ATTEND Student in an Organized Health Care Education/Training Program
PROC: 0DJ08ZZ Inspection of Upper Intestinal Tract, Via Natural or Artificial Opening Endoscopic (ICD-10-PCS; principal; 2018-12-12)
DX: K22.11 Ulcer of esophagus with bleeding (principal); S72.002A Fracture of unspecified part of neck of left femur, initial encounter for closed fracture; R47.01 Aphasia; J96.11 Chronic respiratory failure with hypoxia; E11.9 Type 2 diabetes mellitus without complications; I10 Essential (primary) hypertension; E78.5 Hyperlipidemia, unspecified; F20.9 Schizophrenia, unspecified; J44.9 Chronic obstructive pulmonary disease, unspecified; R79.89 Other specified abnormal findings of blood chemistry; K44.9 Diaphragmatic hernia without obstruction or gangrene; K21.0 Gastro-esophageal reflux disease with esophagitis; K29.70 Gastritis, unspecified, without bleeding; Z93.1 Gastrostomy status; Z74.01 Bed confinement status; X58.XXXA Exposure to other specified factors, initial encounter
CPT/HCPCS: 36415; 36416; 71045; 80048; 81001; 84145; 85025; 85027; 86850; 86900; 86901; 87040; 96374; 96375; C9113; J2270; J2405; J2704; Q0163